=== PATIENT | female | born 1950 | race Two or more races ===

== ENCOUNTER → 2020-01-23 | Day surgery (SDC) | payer MEDICARE ==
[2020-01-17 16:35] LABS: BASOPHILS # (AUTO) 0.1 X10'3 (0-0.2); BASOPHILS % (AUTO) 0.9 % (0-1); EOSINOPHILS # (AUTO) 0.3 X10'3 (0-0.9); EOSINOPHILS % (AUTO) 4.7 % (0-6); LYMPHOCYTES # (AUTO) 1.3 X10'3 (1.1-4.8); LYMPHOCYTES % (AUTO) 21.9 % (21-51); MEAN CORPUSCULAR HEMOGLOBIN 28.1 PG (27.0-31.0); MEAN CORPUSCULAR HGB CONC 32.4 g/dL (33.0-36.5); MEAN CORPUSCULAR VOLUME 86.9 FL (78-98); MEAN PLATELET VOLUME 8.7 FL (7.4-10.4); MONOCYTES # (AUTO) 0.7 X10'3 (0-0.9); MONOCYTES % (AUTO) 11.9 % (2-12); NEUTROPHILS # (AUTO) 3.5 X10'3 (1.8-7.7); NEUTROPHILS % (AUTO) 60.6 % (42-75); PRE OP HEMATOCRIT 48.1 % (35.0-45.0); PRE OP HEMOGLOBIN 15.6 g/dL (12.0-16.0); PRE OP PLATELET COUNT 170 X10'3 (140-440); RED BLOOD COUNT 5.53 X10'6 (4.20-5.60); RED CELL DISTRIBUTION WIDTH 15.9 % (11.5-14.5)
[2020-01-17 16:49] LABS: ALBUMIN 4.4 G/DL (3.4-5.0); ALBUMIN/GLOBULIN RATIO 1.2 (1.1-1.5); ALKALINE PHOSPHATASE 77 IU/L (46-116); BLOOD UREA NITROGEN 32 MG/DL (7-18); BUN/CREATININE RATIO 24.6 (6.6-38.0); CALCIUM 9.4 MG/DL (8.5-10.1); CHLORIDE 102 MMOL/L (99-107); PRE OP ALT 27 U/L (30-65); PRE OP ANION GAP 5 (8-16); PRE OP AST 22 U/L (10-37); PRE OP BILIRUB, TOTAL 0.5 MG/DL (0.0-1.0); PRE OP GLUCOSE 94 MG/DL (70-104); PRE OP POTASSIUM 4.1 MMOL/L (3.4-5.1); PRE OP SODIUM 138 MMOL/L (135-145); TOTAL CARBON DIOXIDE 30.8 MMOL/L (24-32); TOTAL PROTEIN 8.1 G/DL (6.4-8.2); eGFR 41 ML/MIN
[~2020-01-23] VITALS: Ht 165.1 cm; Wt 95.3 kg
[2020-01-23] VITALS (10 sets, daily range): BP systolic 86–166; BP diastolic 49–92
[~2020-01-23] MED LIST: ALBU8HFA PO; LISI10TA4 PO; MESSAGE TO NURSING IV ONE; METH-603 PO; MIDAZolam 5mg/5ml vial ONE; MULTIVITAMIN PO; SENN-263 PO; ZINC PO; albuterol 2.5 MG/3 ML nebule NEB ONE; cefazolin/dext.iso 2gm/50ml 50 ML IV ONE; celeCOXIB 100mg capsule PO ONE; ePHEDrine 50MG/ML INJ. ONE; famotidine 20mg tablet PO ONE; fentaNYL/PF 50MCG/1 ML 2ML syringe ONE; gabapentin 300mg capsule PO ONE; meperidine/PF 25mg/ml syringe IV PRN; metoclopramide 5 mg/ml inj IV ONE; morphine 2 MG/ML inj. syringe IV PRN; morphine 4 MG/ML inj SYRINge IV PRN; ondansetron/PF 4mg/2ml inj IV PRN; oxyCODONE SR 10mg (sust. release) tab -2 tabs (20mg) PO ONE; proCHLORperazine 10 MG/2 ml inj IV PRN; ringers solution, lacted 1,000 ML IV SCH; tranexamic acid 1gm/0.7% sal. 100 ML IV ONE; vancomycin 1,500 MG in NS 300ml IV soln IV ONE
[2020-01-23] MEDS: acetaminophen 325mg tablet PO ONE ×2 (05:30→09:44)
--- NOTE | 2020-01-23 11:35 | NUR ---
Received from OR via BED, accompanied by Anesthesiologist DR CRUZ and report given by Anesthesiolgist. PATIENT A&OX4, DENIES PAIN, V/S WNL, NEUROVASCULAR CHECKS INTACT, SCD ON, RIGHT HIP DRESSING CDI ...WITH ICE BAG APPLIED. 20G LUE.
--- NOTE | 2020-01-23 13:25 | NUR ---
PATIENT A&OX4, DENIES PAIN, V/S WNL, NEUROVASCULAR CHECKS INTACT, SCD ON, RIGHT HIP DRESSING CDI ...WITH ICE BAG APPLIED. 20G LUE PIV. PATIENT HAD SPINAL AND IS ABLE TO MOVE BOTH LEGS BUT NOT YET READY FRO STANDING AND D/C HOME SO SHE WAS TAKEN TO 4018 WITH ALL BELONGINGS AND HOOKED UP TO MONITORS IN ROOM AND REPORT GIVEN TO TEST LEAD WHO HAS TAKEN OVER PATIENT CARE. SHE MAY BE D/C HOME PER DR RUIZ WHEN SHE IS ABLE TO TRANSFER SAFELY AND AMBULATE SAFELY
--- NOTE | 2020-01-23 15:14 | NUR ---
PT DISCHARGED FROM ORTHO UNIT. VSS. PIV REMOVED, CANULA INTACT. PT TRANSFERED FROM BED TO PERSONAL ELECTRONIC SCOOTER SAFELY. PT VOICED NO DISTRESS. DISCHARGE PAPERWORK GIVEN AND REVIEWED WITH PT IN RECOVERY.
== END | disposition home or self-care (01) ==
LOC: PAS 08:44 → EDSTATUS 12:00
PROVIDERS: ATTEND Orthopaedic Surgery
DX: T84.84XA Pain due to internal orthopedic prosthetic devices, implants and grafts, initial encounter (principal); Y83.8 Other surgical procedures as the cause of abnormal reaction of the patient, or of later complication, without mention of misadventure at the time of the procedure; Z79.01 Long term (current) use of anticoagulants; Z79.899 Other long term (current) drug therapy; Z88.8 Allergy status to other drugs, medicaments and biological substances; J44.9 Chronic obstructive pulmonary disease, unspecified; G47.30 Sleep apnea, unspecified; Z96.652 Presence of left artificial knee joint; Z87.891 Personal history of nicotine dependence; Z11.59 Encounter for screening for other viral diseases
CPT/HCPCS: 20680; 36415; 71046; 73502; 76000; 80053; 82948; 85025; 93005; J2250; J2765; J3010; J3370; J7040; J7120; U0003; A4618; A6449; A7000